=== PATIENT | male | born 1985 | race Caucasian/White ===

== ENCOUNTER → 2022-09-23 | Outpatient (CLI) | payer BC ==
--- NOTE | 2022-09-23 12:40 | Diagnostic Imaging Report ---
CLINICAL HISTORY: Left foot pain. No known injury. COMPARISON: None. TECHNIQUE: 3 views of the left foot. FINDINGS: There is no acute fracture or dislocation of the left foot. Alignment is anatomic. The imaged joint spaces are preserved. No focal osseous lesions. IMPRESSION: 1. No acute fracture or dislocation of the left foot. Dictated by: Dictated on workstation # [id number]
== END ==
LOC: RAD 11:47
PROVIDERS: ATTEND Nurse Practitioner Family
DX: M79.672 Pain in left foot (principal)
CPT/HCPCS: 73630

== ENCOUNTER → 2023-03-06 | Outpatient (CLI) | payer BC ==
--- NOTE | 2023-03-06 13:19 | Diagnostic Imaging Report ---
EXAMINATION: Right ankle, 2 views. HISTORY: Right ankle stiffness. COMPARISON: None available. FINDINGS: There has been screw fixation of the medial malleolus. No fracture. No dislocation. The joint spaces are normal. IMPRESSION: No acute abnormality in the right ankle. Dictated by: Dictated on workstation # [id number]
== END ==
LOC: RAD 11:32
PROVIDERS: ATTEND Nurse Practitioner Family
DX: M25.671 Stiffness of right ankle, not elsewhere classified (principal); R20.2 Paresthesia of skin
CPT/HCPCS: 73600